=== PATIENT | female | born 1975 | race African-American/Black ===

== ENCOUNTER 2019-12-13 17:07 | Emergency (ER) | payer SELFPAY ==
[2019-12-13] MEDS ORDERED: Ketorolac Tromethamine 30 MG/ML VIAL ONE (17:52)
--- NOTE | 2019-12-13 18:44 | RAD ---
LUMBAR SPINE SERIES THREE VIEWS: 12/13/19 HISTORY: Back pain radiating to left side. An IUD is noted. The vertebral bodies are normal in height. Small osteophytes are seen without any si gnificant disc narrowing. No spondylolisthesis. Pedicles are intact. IMPRESSION: Mild arthritic change of the spine. POS: [facility]
--- NOTE | 2019-12-13 18:45 | RAD ---
PA AND LATERAL CHEST: 12/13/19 HISTORY: Chest pain and left sided flank pain. Heart size is within normal limits. Mediastinal structures are unremarkable. The lungs are clear of a ny infiltrative process. IMPRESSION: No active intrathoracic disease. POS: [facility]
== END 2019-12-13 19:23 | disposition home or self-care (01) ==
LOC: ERS 17:07
DX: S39.012A Strain of muscle, fascia and tendon of lower back, initial encounter (principal); I10 Essential (primary) hypertension; X58.XXXA Exposure to other specified factors, initial encounter
CPT/HCPCS: 71046; 72100; 96372; J1885

== ENCOUNTER 2023-09-10 00:14 | Emergency (ER) | payer OTHER, SELFPAY ==
[2023-09-10 01:21] LABS: #Eosinphils 0.2 thou/uL (0.0-0.7); #Monocytes 0.3 thou/uL (0.11-0.59); #Neutrophils 3.3 thou/uL (1.40-6.50); %Basophils 0.7 % (0.0-1.0); %Eosinophils 3.8 % (0.0-10.0); %Lymphocytes 37.3 % (21.0-51.0); %Monocytes 4.1 % (0.0-10.0); %Neutrophils 54.1 % (42.0-75.0); Hematocrit 38.6 % (36.0-47.0); Hemoglobin 11.9 g/dL (12.0-16.0); Mean Corpuscular HGB CONC 30.8 g/dL (32.0-36.0); Mean Corpuscular Hemoglobin 30.7 pg (27.0-31.0); Mean Corpuscular Volume 99.7 fl (78.0-98.0); Mean Platelet Volume 11.6 fL (7.4-10.4); Platelet Count 175 10x3/uL (130-400); RBC Distribution Width 12.8 % (11.5-14.5); Red Blood Cell (RBC) Count 3.87 mill/uL (4.20-5.40); White Blood Cell (WBC) Count 6.1 10x3/uL (4.8-10.8)
[2023-09-10 01:34] LABS: Bacteria/HPF None Seen HPF (None Seen); Bilirubin Negative (Negative); Blood, Urine Negative (Negative); CAUTI Indications for Culture Dysuria,urgency,freq; Clarity Clear (Clear); Glucose, Urine (Dipstick) Normal (Negative); Ketone, Urine Negative (Negative); Leukocyte 75 Leu/uL (Negative); Nitrite Negative (Negative); Protein, Urine (Dipstick) Negative (Neg-Trace); RBC/HPF None Seen HPF (0-3); Specific Gravity, Urine 1.006 (1.002-1.036); Squamous Epithelial 0-3 HPF (0-3); Urobilinogen Normal mg/dL (Less than 2); WBC/HPF 0-3 HPF (0-3)
[2023-09-10 01:37] LABS: Urine Culture Reflex No No
[2023-09-10 01:55] LABS: ALT (SGPT) 13 U/L (8-55); AST (SGOT) 14 U/L (5-34); Albumin 4.1 g/dL (3.5-5.0); Alkaline Phosphatase 73 U/L (40-110); Anion Gap 10 mmol/L (10-20); BUN (Urea Nitrogen) 15 mg/dL (7.0-18.7); Bilirubin, Total 0.2 mg/dL (0.2-1.2); Calc. Creatinine Clearance 0 mL/min (70-130); Calcium 9.5 mg/dL (7.8-10.44); Carbon Dioxide 26 mmol/L (22-29); Chloride 106 mmol/L (98-107); Estimated GFR 86; Globulin 3.4 g/dL (2.4-3.5); Glucose 93 mg/dL (70-105); Lipase 9 U/L (8-78); Potassium 3.7 mmol/L (3.5-5.1); Protein, Total 7.5 g/dL (6.0-8.3); Sodium 138 mmol/L (136-145)
== END 2023-09-10 03:06 | disposition home or self-care (01) ==
LOC: ERS 00:14
DX: I10 Essential (primary) hypertension (principal)
CPT/HCPCS: 36415; 80053; 81001; 83690; 85025; 93005